=== PATIENT | female | born 1940 | race Hispanic/Latino ===

== ENCOUNTER 2017-11-29 14:31 | Emergency (ER) | payer MEDICARE ==
[~2017-11-29] VITALS: Ht 152.4 cm; Wt 124.7 kg
[2017-11-29] MEDS ORDERED: KETOROLAC TROMETHAMINE 60 MG/2 ML VIAL IM ONE (17:00)
[2017-11-29] MEDS ORDERED: DICYCLOMINE HCL10 MG PO (17:11)
[2017-11-29] MEDS ORDERED: NORVASC5 MG PO (17:11)
[2017-11-29] MEDS ORDERED: TRAZODONE HCL50 MG PO (17:11)
[2017-11-29] MEDS ORDERED: HYDROCHLOROTHIA25 MG PO (17:11)
[2017-11-29] MEDS ORDERED: ULTRAM 50MG50 MG PO (17:11)
[2017-11-29] MEDS ORDERED: MELOXICAM7.5 MG PO (17:36)
[2017-11-29] MEDS ORDERED: PANTOPRAZOLE SO40 MG PO (17:36)
== END 2017-11-29 18:13 | disposition home or self-care (01) ==
LOC: FSED 14:31
DX: G89.11 Acute pain due to trauma (principal); S50.11XA Contusion of right forearm, initial encounter; S60.211A Contusion of right wrist, initial encounter; S60.221A Contusion of right hand, initial encounter; Y93.H2 Activity, gardening and landscaping; M06.9 Rheumatoid arthritis, unspecified
CPT/HCPCS: 99284; J1885